=== PATIENT | female | born 1985 | race American Indian/Alaskan Native ===

== ENCOUNTER 2018-12-31 14:11 | Emergency (ER) | payer SELFPAY ==
[2018-12-31 14:34] VITALS: BP 151/97
--- NOTE | 2018-12-31 14:57 | Emergency Department Report ---
ED Laceration HPI - HPI Chief Complaint: Skin/Abscess/Foreign Body Stated Complaint: BUMP ON HEAD/PAIN Time Seen by Provider: 12/31/18 14:52 Occurred When: Before Yesterday Location: Head Severity: mild Tetanus Status: Up to Date Laceration Symptoms: Yes Pain, No Foreign Body Sensation, No Numbness, No Weakness Other History: Patient is a 33-year-old comes to the ER with an abscess on the top of her head. She states that it came up a couple days ago. She has had these before. Neop-[id number] medications have not relieved the pain. ED Review of Systems ROS: Stated complaint: BUMP ON HEAD/PAIN Other details as noted in HPI Comment: All other systems reviewed and negative ED Past Medical Hx - Past Medical History Hx Hypertension: Yes Hx Psychiatric Treatment: Yes (depression) Additional medical history: lymphedema - Surgical History Past Surgical History?: No Additional Surgical History: breast reduction - Social History Smoking Status: Current Some Day Smoker Substance Use Type: None - Medications Home Medications: Home Medications Medication Instructions Recorded Confirmed Last Taken Type ALBUTEROL Inhaler (OR & NICU) 2 puff IH QID PRN #1 inhalation 10/16/15 Unknown Rx [Proair] ALBUTEROL NEB's [Proventil 0.083% 2.5 mg IH QID PRN #75 neb 10/16/15 Unknown Rx NEBS] Azithromycin [Zithromax TAB] 250 mg PO QDAY #6 tablet 10/16/15 Unknown Rx Azithromycin [Zithromax] 250 mg PO QDAY 10/16/15 10/16/15 10/16/15 09:00 History Citalopram [celeXA] 10 mg PO QDAY 10/16/15 10/16/15 1 Week Ago History ~10/09/15 Nebulizer [Aeroneb Go Nebulizer] 1 each MC DAILY #1 each 10/16/15 Unknown Rx predniSONE [Deltasone] 40 mg PO QDAY #10 tab 10/16/15 Unknown Rx Sulfamethoxazole/Trimethoprim 1 each PO BID #10 tablet 12/31/18 Unknown Rx [Bactrim DS TAB] traMADol [Ultram] 50 mg PO Q6HR PRN #10 tablet 12/31/18 Unknown Rx Laceration Physical Exam - Exam General: Vital signs noted. No distress. Alert and acting appropriately. Laceration Location: Head Laceration Exam: Yes Normal Distal CMS, No Foreign Body, No Exposed Tendon, Vessel, or Nerve, No Tendon Injury ED Course Vital Signs 12/31/18 14:33 Temperature 98.5 F Pulse Rate 77 Respiratory 18 Rate Blood Pressure 151/97 [Left] O2 Sat by Pulse 98 Oximetry - I & D HEAD Type of Procedure: Simple Blade Size: 16 I & D Procedure: betadine prep Progress: TOLERATED WELL ED Medical Decision Making - Medical Decision Making SIMPLE ABSCESS I/D DC HOME WITH PCP FOLLOW UP Vital Signs 12/31/18 14:33 Temperature 98.5 F Pulse Rate 77 Respiratory 18 Rate Blood Pressure 151/97 [Left] O2 Sat by Pulse 98 Oximetry Critical care attestation.: If time is entered above; I have spent that time in minutes in the direct care of this critically ill patient, excluding procedure time. ED Disposition Clinical Impression: Abscess Disposition: DC-01 TO HOME OR SELFCARE Is pt being admited?: No Does the pt Need Aspirin: No Condition: Stable Instructions: Abscess (ED) Additional Instructions: DIET TOLERATED MEDS ORDERED TODAY IN ER FOLLOW INSTRUCTIONS ON THE BOTTLE FOLLOW UP PCP WITHIN 48 HOURS TO ENSURE YOU ARE GETTING BETTER ACTIVITY TOLERATED MOTRIN OR TYLENOL FOR PAIN OR FEVER RETURN TO THE ER FOR WORSENING SYMPTOMS NOT RELIEVED BY YOUR MEDICATIONS. Prescriptions: Sulfamethoxazole/Trimethoprim [Bactrim DS TAB] 1 each PO BID #10 tablet traMADol [Ultram] 50 mg PO Q6HR PRN #10 tablet PRN Reason: Pain Referrals: NIMO LUNA MD [Primary Care Provider] - 3-5 Days ULCAS BISWAS MD [Staff Physician] - 3-5 Days Time of Disposition: 15:33
[2018-12-31] MEDS ORDERED: BACTRIM DS PO ONE (15:32)
[2018-12-31] MEDS ORDERED: NORCO 7.5/325 PO ONE (15:32)
[2018-12-31] MEDS ORDERED: XYLOCAINE 2% INFILTRATI ONE (15:56)
== END 2018-12-31 16:34 | disposition home or self-care (01) ==
LOC: ED 14:11
DX: L02.811 Cutaneous abscess of head [any part, except face] (principal); I10 Essential (primary) hypertension; F17.200 Nicotine dependence, unspecified, uncomplicated; Z79.899 Other long term (current) drug therapy; Z88.0 Allergy status to penicillin

== ENCOUNTER 2019-02-19 11:25 | Emergency (ER) | payer SELFPAY ==
[2019-02-19 12:21] VITALS: BP 147/88
--- NOTE | 2019-02-19 13:18 | Emergency Department Report ---
Blank Doc - Documentation Documentation: This is a 34-year-old female that presents with right plantar foot pain. This initial assessment/diagnostic orders/clinical plan/treatment(s) is/are subject to change based on patient's health status, clinical progression and re- assessment by fellow clinical providers in the ED. Further treatment and workup at subsequent clinical providers discretion. Patient/guardians urged not to elope from the ED as their condition may be serious if not clinically assessed and managed. Initial orders include: 1- Patient sent to [facility] for further evaluation and treatment 2- xray
[2019-02-19] MEDS ORDERED: IBUPROFEN PO ONE (13:19)
--- NOTE | 2019-02-19 14:01 | XRay Report ---
XR foot 3+V RT INDICATION / CLINICAL INFORMATION: Right foot pain. COMPARISON: None available. FINDINGS: BONES/JOINT(S): No acute fracture or subluxation. No significant degenerative changes. Accessory os p eroneum noted. No aggressive appearing bone lesions. SOFT TISSUES: Mild diffuse soft tissue swelling without soft tissue gas or radiopaque foreign body. ADDITIONAL FINDINGS: None. Signer Name: Jamie Moore MD Signed: 02/19/2019 1:57 PM Workstation Name: [id number]
--- NOTE | 2019-02-19 15:09 | Emergency Department Report ---
ED Back Pain/Injury HPI - General Chief Complaint: Extremity Problem,Nontraumatic Stated Complaint: (R) FOOT PAIN Time Seen by Provider: 02/19/19 13:17 Source: patient Limitations: No Limitations - History of Present Illness Initial Comments: 34 YO COMES TO ER WITH R FOOT PAIN. THE BOTTOM OF HER FOOT HURTS CAUSING HER TO WALK ON HER TOES. SHE IS A [employer] ATT[employer]. SHE HAS FLAT FEET AND LYMPHEDEMA. NOTHING MAKES IT BETTER AND ACTIVITY MAKES IT WORSE. NO TRAUMA OR INJURY KNOWN - Related Data Home Medications Medication Instructions Recorded Confirmed Last Taken Citalopram [celeXA] 10 mg PO QDAY 10/16/15 10/16/15 1 Week Ago ~10/09/15 Previous Rx's Medication Instructions Recorded Last Taken Type Nebulizer [Aeroneb Go Nebulizer] 1 each MC DAILY #1 each 10/16/15 Unknown Rx Ibuprofen [Motrin] 800 mg PO Q8HR PRN #30 tablet 02/19/19 Unknown Rx Allergies Allergy/AdvReac Type Severity Reaction Status Date / Time Penicillins AdvReac Shortness Verified 10/16/15 11:34 of Breath ED Review of Systems ROS: Stated complaint: (R) FOOT PAIN Other details as noted in HPI Comment: All other systems reviewed and negative ED Past Medical Hx - Past Medical History lymphedema Surgical history: no surgical history Psychiatric history: no pertinent history ED Back Pain Physical Exam - Exam General: Vital signs noted. No distress. Alert and acting appropriately. Neuro: Yes Normal Sensation, Yes Normal DTR's, No Motor Weakness, No Normal Gait (LIMITED DUE TO PAIN) ED Course Vital Signs 02/19/19 02/19/19 12:16 13:23 Temperature 98.4 F Pulse Rate 89 Respiratory 18 18 Rate Blood Pressure 147/88 O2 Sat by Pulse 99 Oximetry Ed Back Pain Tests - Tests Tests: Normal ED Medical Decision Making - Radiology Data Radiology results: report reviewed, image reviewed - Medical Decision Making HX OF FRACTURE IN SAME FOOT NO FX ON XRAY SOFT TISSUE SWELLING NOTED POS LYMPHEDEMA RX NONE NO TRAUMA NEUROVASC INTACT WITH DP/PT PLUS 2. MEDICATED FOR PAIN WILL RICE TREAT AND HAVE PT FOLLOW UP WITH ORTHO MD NEXT WEEK Vital Signs 02/19/19 02/19/19 12:16 13:23 Temperature 98.4 F Pulse Rate 89 Respiratory 18 18 Rate Blood Pressure 147/88 O2 Sat by Pulse 99 Oximetry - Differential Diagnosis RO FX Critical care attestation.: If time is entered above; I have spent that time in minutes in the direct care of this critically ill patient, excluding procedure time. ED Disposition Clinical Impression: Foot pain, right Disposition: DC-01 TO HOME OR SELFCARE Is pt being admited?: No Does the pt Need Aspirin: No Condition: Stable Additional Instructions: CRUTCHES FOR COMFORT ICE REST ELEVATE MOTRIN FOR PAIN FOLLOW UP WITH DR MEJIA NEXT WEEK REFERRAL BELOW Referrals: SINAI MEJIA MD [Staff Physician] - 3-5 Days Time of Disposition: 15:09
== END 2019-02-19 16:15 | disposition home or self-care (01) ==
LOC: ED 11:25
DX: M79.671 Pain in right foot (principal); Z88.0 Allergy status to penicillin